=== PATIENT | male | born 1955 | race African-American/Black ===

== ENCOUNTER → 2018-11-17 | Outpatient (CLI) | payer OTHER ==
--- NOTE | 2018-11-17 17:15 | RAD ---
Examination: ABDOMEN COMPLETE History: Thrombocytopenia and abdominal fullness Comparison/Correlation: None Findings: Abdominal ultrasound exam was performed. Gallbladder has measurement of up to 5.2 cm. No cholelithiasis or evidence of cholecystitis. Normal gallbladder wall thickness of 0.2 cm. Portal venous flow is normal. Liver length of 16.7 cm is present. Normal hepatic echotexture. Common bile duct measures 0.3 cm diameter. Portal vein is normal. Distal pancreas obscured by bowel gas. Spleen measures 9.2 cm longitudinally. Spleen is normal in appearance. Right kidney measures 11.3 cm x 5.5 cm x 4.5 cm. Left kidney measures 11.1 cm x 5.5 cm x 5.4 cm. Abdominal aorta and inferior vena cava are grossly unremarkable although not optimally imaged in their entirety on this exam. No ascites. Impression: Abdominal ultrasound examination is unremarkable. No suspicious process. Electronically signed by: Adithya Blue MD (11/17/2018 5:12 PM) [facility]
== END | disposition home or self-care (01) ==
LOC: US 13:46
PROVIDERS: ATTEND Family Medicine
DX: D69.6 Thrombocytopenia, unspecified (principal)
CPT/HCPCS: 76700